=== PATIENT | female | born 1995 ===

== ENCOUNTER 2022-01-31 15:15 | Emergency (ER) | payer SELFPAY ==
[2022-01-31] MEDS ORDERED: Rabies Vaccine (Avian) 2.5 Unit Inj Kit IM ONE (17:51)
[2022-01-31] MEDS ORDERED: Diphtheria,Pertussis(Acell),Tetanus Vaccine 0.5 ML Syringe IM ONE (17:51)
[2022-01-31] MEDS ORDERED: Rabies Immune Globulin PF 150 Units/ML 10 ML SDV IM ONE (17:58)
[2022-01-31] MEDS ORDERED: Lidocaine 1% with EPINEPHrine 1:100,000 10 ML MDV INJECT ONE (18:01)
== END 2022-01-31 20:25 | disposition home or self-care (01) ==
LOC: MW.ED 15:15
DX: S51.852A Open bite of left forearm, initial encounter (principal); Z23 Encounter for immunization; Z79.899 Other long term (current) drug therapy; W54.0XXA Bitten by dog, initial encounter
CPT/HCPCS: 12001; 90471; 90715; 99283-25

== ENCOUNTER 2022-06-20 15:49 | Emergency (ER) | payer SELFPAY | END 2022-06-20 18:30 | disposition home or self-care (01) | LOC: MW.ED 15:49 | DX: J02.9 Acute pharyngitis, unspecified (principal) | CPT/HCPCS: 87651-QW; 99283 ==

== ENCOUNTER 2022-08-02 10:11 | Emergency (ER) | payer SELFPAY | END 2022-08-02 11:58 | disposition left against medical advice (07) | LOC: MW.ED 10:11 | DX: Z53.21 Procedure and treatment not carried out due to patient leaving prior to being seen by health care provider (principal) ==